=== PATIENT | male | born 1930 | race Caucasian/White ===

== ENCOUNTER 2016-07-30 18:55 | Emergency (ER) | payer OTHER ==
--- NOTE | 2016-07-30 21:14 | ED NURSING NOTES ---
Clinical Report - Nurses [facility] [address] [place] [address] 07/30/2016 18:56 Patient: PLACIDO DONOHUE TRIAGE Acuity: LEVEL 3. Chief Complaint: VOMITING and (dizziness). Alert. No acute distress. SEPSIS SCREEN: Sepsis Screen. Negative (no infection suspected/documented). --19:19 Jody Johnston R.N. 19:09 07/30/16. BP: 204/101. HR: 108. RR: 20. O2 saturation: 97% on room air. Temp: 97.7 F (oral). Pain level now: 0/10. --19:19 Jody Johnston R.N. Weight: 68 kg stated. Height/Length: 66 inches Per Patient. BMI: 24.2. --19:12 Jody Johnston R.N. Medications Metformin 500mg day . PredniSONE Oral 3 mg, daily. --19:12 Jody Johnston R.N. Blood Pressure Pill. --19:12 Jody Johnston R.N. Medication/allergy information source: the patient. --19:19 Jody Johnston R.N. Allergies No Known Drug Allergy. --19:12 Jody Johnston R.N. History Arrived by private vehicle. Historian: patient. Accompanied by spouse. Primary physician (katharina at [facility]). This started today. 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 SOCIAL HX: Former smoker, end date 1976. No alcohol use or drug use. NUTRITIONAL RISK ASSESSMENT: The nutritional risk assessment revealed no deficiencies. LEARNING NEEDS ASSESSMENT: The learning needs assessment revealed no barriers. FALL RISK ASSESSMENT: Fall risk assessment completed. Risk factors identified include patient age greater than 65 years and impairment of mobility. Fall interventions initiated. Side rails up x2. Patient visible from nurses' station and identified as a fall risk. Call light in reach of patient. FUNCTIONAL ASSESSMENT: Functional assessment performed: independent with the activities of daily living. SKIN INTEGRITY ASSESSMENT: Skin integrity risk assessment completed. No skin integrity risk identified. --19:19 Jody Johnston R.N. PROBLEMS: Abnormal EKG. Fall. Contusion. Skin Avulsion. Hyperlipidemia. Gastroesophageal Reflux. Heart Disease. Diabetes Mellitus. Hypertension. Cabg x3 vessels . --19:11 Jody Johnston R.N. ADDITIONAL SURGERIES: Coronary Artery Bypass Graft. --19:11 Jody Johnston R.N. Hernia Repair. --19:13 Jody Johnston R.N. Assessment GENERAL / NEURO / PSYCH: Alert. Oriented X 4. Appears in no acute distress. Patient appears calm and cooperative. RESPIRATORY: Respirations not labored. CVS: Capillary refill less than 2 seconds. GI / : Abdomen soft and nontender. SKIN: Mucous membranes are pink. Skin is warm and dry. --19:19 Jody Johnston R.N. Interventions ID band on patient. To treatment room. --19:19 Jody Johnston R.N. PHYSICAL ASSESSMENT 19:21 07/30/16. To room via wheelchair. GENERAL / NEURO / PSYCH: Alert. Oriented X 4. Appears in no acute distress. HEENT: Mucous membranes are pink. RESPIRATORY: Respirations not labored. CVS: Capillary refill less than 2 seconds. GI / : The patient has had nausea. Emesis noted. Has vomited twice. Abdomen soft and nontender. SKIN: Skin is warm and dry. --19:21 Jody Johnston R.N. NURSING PROGRESS NOTES 19:07/30/16. EKG time: (1915). EKG was performed by a tech and shown to the ED physician. --19: Jody Johnston R.N. 19:07/30/16. Oxygen administered by nasal cannula at 2 liters. air sampling and monitoring, pulse oximeter and NIBP monitor placed on patient; monitor alarms on. Patient gowned. Two patient identifiers checked. Call light placed in reach. Side rails up x 1. Bed placed in lowest position. Brakes of bed on. Patient ready for evaluation- chart flagged and ED physician notified. --19: Jody Johnston R.N. 19:20 07/30/2016 Site #1 started via IV in the left wrist with an 20g angiocath, with aseptic technique and good blood return; one attempt. Blood drawn: rainbow set. Labeled in the presence of the patient and sent to the lab. Saline lock flushed with 10 mL saline. --19:20 Jody Johnston R.N. 19:20 07/30/16. Glucose: 148. --19:20 Jody Johnston R.N. 19:24 07/30/16. Cardiac rhythm: sinus tachycardia. --19:24 Jody Johnston R.N. 19:24 07/30/16. BP: 175/84. HR: 111. RR: 19. O2 saturation: 95% on room air. Pain level now: 0/10. --19:24 Jody Johnston R.N. 19:23 07/30/2016 Zofran ODT (Ondansetron) PO 4 mg given. Allergies verified and confirmed 5 rights. --19:28 Jody Johnston R.N. 19:44 07/30/2016 Meclizine PO Tablets 25 mg given. Allergies verified, confirmed 5 rights and sedative warning given to the patient. --19:44 Cyndi Carbajal 19:54 07/30/2016 Started bag #1 1000 mL IV Fluids IV NS (Saline); at 999 mL/hr over 1 hour(s) via site #1 via IV pump. Allergies verified and confirmed 5 rights. IV patency established. IV site checked: no pain, redness, or swelling. IV flushed thoroughly pre- and post-medication administration. --19:54 Jody Johnston R.N. 20:22 07/30/16. BP: 171/69. HR: 79. RR: 18. O2 saturation: 93% on room air. --20:43 Jody Johnston R.N. 21:01 07/30/2016 IV Fluids IV NS Discontinued: bag #1 infused. Total amount infused: 700 mL. IV patency established. IV site checked: no pain, redness, or swelling. IV flushed thoroughly. (approx 300 mL of saline spilled on the floor when IV tubing became undone). --21:11 Jody Johnston R.N. 21:25 07/30/2016 Site #1 removed upon discharge. Catheter intact. Pressure dressing applied. --21:30 Cyndi Carbajal 21:25 07/30/2016 IV Saline Lock Drip IV Discontinued. Total amount infused: 0 mL. --21:30 Cyndi Carbajal. DISPOSITION / DISCHARGE 21:18 07/30/16. BP: 163/82. HR: 78. RR: 16. O2 saturation: 96%. Temp: 97.5 F. Pain level now 0/10. --21:18 Cyndi Carbajal 21:23 07/30/16. No learning barriers present. Discharge instructions provided and reviewed with the patient and spouse. Reviewed warnings. Reviewed medication(s). Treatments reviewed. Reviewed referrals. Activity restrictions reviewed. Patient and spouse verbalized understanding. Written instructions provided in [place]. The patient was discharged home and accompanied by family. He left the Emergency Department ambulatory and via private vehicle. Family member driving. --21:23 Shadia Person R.N. Locked/Released at 07/31/2016 5:48 by Shadia Person R.N.
--- NOTE | 2016-07-30 21:14 | ED ORDER SUMMARY ---
..... Patient: PLACIDO DONOHUE OrderSheet [facility] VisitID: [id number] [place] [address] 86y, M Registration Date/Time: 07/30/2016 ORDER SHEET Weight: 68.0 kg (stated) Allergies: No Known Drug Allergy GENERAL ORDERS: Geography Faculty Member (Continuous) (19:25 07/30/2016 MWinterer R.N. per protocol) (19:25 MWinterer R.N.) POC Glucose (19:07/30/2016 MWinterer R.N. per protocol) (19:25 MWinterer R.N.) EKG - ER Stat (19:07/30/2016 MWinterer R.N. per protocol) (19:25 MWinterer R.N.) Pulse oximeter (19:07/30/2016 MWinterer R.N. per protocol) (19:25 MWinterer R.N.) MEDICATION ORDERS: Zofran ODT PO 4 mg (NOW) (19:27 07/30/2016 MWinterer R.N. per protocol) (19:28 MWinterer R.N.) Meclizine PO 25 mg (NOW) (19:34 07/30/2016 Cathy Melendez) (Ack 19:42 ASchmuck) (19:44 ASchmuck) IV FLUIDS: IV Saline Lock (19:25 07/30/2016 MWinterer R.N. per protocol) (19:25 MWinterer R.N.) IV NS : initial bolus none -, then 1000 mL/hr for X1 (NOW) (19:49 07/30/2016 Cathy Melendez) (19:54 MWinterer R.N.) ORDER SHEET NOTES: [Electronically signed by Tiago Post Dr. (22:46 07/30/2016)] [Electronically signed by Shadia Person R.N. (05:48 07/31/2016)] [Electronically locked/signed by Shadia Person R.N. (05:48 07/31/2016)]
--- NOTE | 2016-07-30 21:14 | ED CLINICAL REPORT ---
Clinical Report - Physicians/Mid Levels [facility] [address] [place] [address] 07/30/2016 18:56 Patient: PLACIDO DONOHUE Time Seen: 19:07; initial patient contact. Arrived- By private vehicle. Historian- patient. HISTORY OF PRESENT ILLNESS Chief Complaint: VOMITING. This started today and is still present. It was gradual in onset. The patient has had nausea and vomiting. No diarrhea or abdominal pain. The illness is described as moderate. Similar symptoms previously: None. Recent medical care: Not recently seen/assessed. REVIEW OF SYSTEMS No fever, difficulty with urination or headache. He has had dizziness and tinnitus. All systems otherwise negative, except as recorded above. PAST HISTORY Abnormal EKG. Fall. Contusion. Skin Avulsion. Hyperlipidemia. Gastroesophageal Reflux. Heart Disease. Diabetes Mellitus. Hypertension. Cabg x3 vessels . ADDITIONAL SURGERIES: Coronary Artery Bypass Graft. Hernia Repair. SOCIAL HISTORY Former smoker. No alcohol use or drug use. ADDITIONAL NOTES The nursing notes have been reviewed. PHYSICAL EXAM Vital Signs: 07/30/2016 19:09 BP: 204/101. HR: 108. RR: 20. O2 saturation: 97%. Temp: 97.7 F. Pain level now: 0/10. Have been reviewed. Hypertensive. Tachycardic. Respiratory rate normal. Temperature normal. Oxygen saturation normal. Appearance: Alert. Oriented X3. No acute distress. Eyes: Pupils equal, round and reactive to light. Eyes normal inspection. ENT: Dry mucous membranes present. Neck: Normal inspection. Neck supple. CVS: Normal heart rate and rhythm. Heart sounds normal. Respiratory: No respiratory distress. Breath sounds normal. Skin: Skin warm and dry. Normal skin color. Extremities: No lower extremity edema. Neuro: Oriented X 3. No motor deficit. (Positive Jose Hallpike on the L). LABS, X-RAYS, AND EKG EKG: EKG time: (1915). No acute process. Rate: 111. Regular wide-complex tachycardia (ventricular rate 111). Sinus tachycardia. Normal P waves. Normal ANGELICA. Wide QRS- intraventricular conduction delay. Normal axis. Normal ST and T waves. Prolonged QTc (473). EKG unchanged when compared with prior EKG. The study has been interpreted contemporaneously. The study has been independently viewed by me. The EKG appears to be a good tracing. Interpretation time: 1915. PROGRESS AND PROCEDURES Disposition: Discharged home in good and improved condition. Condition: good. CLINICAL IMPRESSION Benign positional vertigo, left ear. INSTRUCTIONS (No driving until this is cleared up.). Your Current Medications: CONTINUE TAKING THE FOLLOWING MEDICATIONS: Blood Pressure Pill*. Metformin 500mg day *. PredniSONE Oral : 3 mg daily. Prescription Medications: Meclizine 25 mg: take 1 tablet orally every 6 hours as needed for dizziness. Dispense thirty (30). No refill. Zofran ODT 4 mg: take 1 orally every 6 hours as needed for nausea and vomiting. Dispense ten (10). No refill. Substitution is permissible. Diazepam 5 mg: take 1 orally at bedtime as needed sleep. Dispense fifteen (15). No refill. Follow-up: Blood pressure screening was not performed during this visit because the patient has an active diagnosis of hypertension. The patient should follow up with a primary care provider for blood pressure management. (Electronically signed by Tiago Post Dr. 07/30/2016 22:46)
--- NOTE | 2016-07-30 21:14 | ED NURSING NOTES ---
Clinical Report - Nurses [facility] [address] [place] [address] 07/30/2016 18:56 Patient: PLACIDO DONOHUE TRIAGE Acuity: LEVEL 3. Chief Complaint: VOMITING and (dizziness). Alert. No acute distress. SEPSIS SCREEN: Sepsis Screen. Negative (no infection suspected/documented). --19:19 Jody Johnston R.N. 19:09 07/30/16. BP: 204/101. HR: 108. RR: 20. O2 saturation: 97% on room air. Temp: 97.7 F (oral). Pain level now: 0/10. --19:19 Jody Johnston R.N. Weight: 68 kg stated. Height/Length: 66 inches Per Patient. BMI: 24.2. --19:12 Jody Johnston R.N. Medications Metformin 500mg day . PredniSONE Oral 3 mg, daily. --19:12 Jody Johnston R.N. Blood Pressure Pill. --19:12 Jody Johnston R.N. Medication/allergy information source: the patient. --19:19 Jody Johnston R.N. Allergies No Known Drug Allergy. --19:12 Jody Johnston R.N. History Arrived by private vehicle. Historian: patient. Accompanied by spouse. Primary physician (katharina at [facility]). This started today. 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 SOCIAL HX: Former smoker, end date 1976. No alcohol use or drug use. NUTRITIONAL RISK ASSESSMENT: The nutritional risk assessment revealed no deficiencies. LEARNING NEEDS ASSESSMENT: The learning needs assessment revealed no barriers. FALL RISK ASSESSMENT: Fall risk assessment completed. Risk factors identified include patient age greater than 65 years and impairment of mobility. Fall interventions initiated. Side rails up x2. Patient visible from nurses' station and identified as a fall risk. Call light in reach of patient. FUNCTIONAL ASSESSMENT: Functional assessment performed: independent with the activities of daily living. SKIN INTEGRITY ASSESSMENT: Skin integrity risk assessment completed. No skin integrity risk identified. --19:19 Jody Johnston R.N. PROBLEMS: Abnormal EKG. Fall. Contusion. Skin Avulsion. Hyperlipidemia. Gastroesophageal Reflux. Heart Disease. Diabetes Mellitus. Hypertension. Cabg x3 vessels . --19:11 Jody Johnston R.N. ADDITIONAL SURGERIES: Coronary Artery Bypass Graft. --19:11 Jody Johnston R.N. Hernia Repair. --19:13 Jody Johnston R.N. Assessment GENERAL / NEURO / PSYCH: Alert. Oriented X 4. Appears in no acute distress. Patient appears calm and cooperative. RESPIRATORY: Respirations not labored. CVS: Capillary refill less than 2 seconds. GI / : Abdomen soft and nontender. SKIN: Mucous membranes are pink. Skin is warm and dry. --19:19 Jody Johnston R.N. Interventions ID band on patient. To treatment room. --19:19 Jody Johnston R.N. PHYSICAL ASSESSMENT 19:21 07/30/16. To room via wheelchair. GENERAL / NEURO / PSYCH: Alert. Oriented X 4. Appears in no acute distress. HEENT: Mucous membranes are pink. RESPIRATORY: Respirations not labored. CVS: Capillary refill less than 2 seconds. GI / : The patient has had nausea. Emesis noted. Has vomited twice. Abdomen soft and nontender. SKIN: Skin is warm and dry. --19:21 Jody Johnston R.N. NURSING PROGRESS NOTES 19:07/30/16. EKG time: (1915). EKG was performed by a tech and shown to the ED physician. --19: Jody Johnston R.N. 19:07/30/16. Oxygen administered by nasal cannula at 2 liters. front desk monitor, pulse oximeter and NIBP monitor placed on patient; monitor alarms on. Patient gowned. Two patient identifiers checked. Call light placed in reach. Side rails up x 1. Bed placed in lowest position. Brakes of bed on. Patient ready for evaluation- chart flagged and ED physician notified. --19: Jody Johnston R.N. 19:20 07/30/2016 Site #1 started via IV in the left wrist with an 20g angiocath, with aseptic technique and good blood return; one attempt. Blood drawn: rainbow set. Labeled in the presence of the patient and sent to the lab. Saline lock flushed with 10 mL saline. --19:20 Jody Johnston R.N. 19:20 07/30/16. Glucose: 148. --19:20 Jody Johnston R.N. 19:24 07/30/16. Cardiac rhythm: sinus tachycardia. --19:24 Jody Johnston R.N. 19:24 07/30/16. BP: 175/84. HR: 111. RR: 19. O2 saturation: 95% on room air. Pain level now: 0/10. --19:24 Jody Johnston R.N. 19:23 07/30/2016 Zofran ODT (Ondansetron) PO 4 mg given. Allergies verified and confirmed 5 rights. --19:28 Jody Johnston R.N. 19:44 07/30/2016 Meclizine PO Tablets 25 mg given. Allergies verified, confirmed 5 rights and sedative warning given to the patient. --19:44 Cyndi Carbajal 19:54 07/30/2016 Started bag #1 1000 mL IV Fluids IV NS (Saline); at 999 mL/hr over 1 hour(s) via site #1 via IV pump. Allergies verified and confirmed 5 rights. IV patency established. IV site checked: no pain, redness, or swelling. IV flushed thoroughly pre- and post-medication administration. --19:54 Jody Johnston R.N. 20:22 07/30/16. BP: 171/69. HR: 79. RR: 18. O2 saturation: 93% on room air. --20:43 Jody Johnston R.N. 21:01 07/30/2016 IV Fluids IV NS Discontinued: bag #1 infused. Total amount infused: 700 mL. IV patency established. IV site checked: no pain, redness, or swelling. IV flushed thoroughly. (approx 300 mL of saline spilled on the floor when IV tubing became undone). --21:11 Jody Johnston R.N. 21:25 07/30/2016 Site #1 removed upon discharge. Catheter intact. Pressure dressing applied. --21:30 Cyndi Carbajal 21:25 07/30/2016 IV Saline Lock Drip IV Discontinued. Total amount infused: 0 mL. --21:30 Cyndi Carbajal. DISPOSITION / DISCHARGE 21:18 07/30/16. BP: 163/82. HR: 78. RR: 16. O2 saturation: 96%. Temp: 97.5 F. Pain level now 0/10. --21:18 Cyndi Carbajal 21:23 07/30/16. No learning barriers present. Discharge instructions provided and reviewed with the patient and spouse. Reviewed warnings. Reviewed medication(s). Treatments reviewed. Reviewed referrals. Activity restrictions reviewed. Patient and spouse verbalized understanding. Written instructions provided in [place]. The patient was discharged home and accompanied by family. He left the Emergency Department ambulatory and via private vehicle. Family member driving. --21:23 Shadia Person R.N. Locked/Released at 07/31/2016 5:48 by Shadia Person R.N.
--- NOTE | 2016-07-30 21:14 | ED ORDER SUMMARY ---
..... Patient: PLACIDO DONOHUE OrderSheet [facility] VisitID: [id number] [place] [address] 86y, M Registration Date/Time: 07/30/2016 ORDER SHEET Weight: 68.0 kg (stated) Allergies: No Known Drug Allergy GENERAL ORDERS: Trimming Cutter Machine (Continuous) (19:25 07/30/2016 MWinterer R.N. per protocol) (19:25 MWinterer R.N.) POC Glucose (19:07/30/2016 MWinterer R.N. per protocol) (19:25 MWinterer R.N.) EKG - ER Stat (19:07/30/2016 MWinterer R.N. per protocol) (19:25 MWinterer R.N.) Pulse oximeter (19:07/30/2016 MWinterer R.N. per protocol) (19:25 MWinterer R.N.) MEDICATION ORDERS: Zofran ODT PO 4 mg (NOW) (19:27 07/30/2016 MWinterer R.N. per protocol) (19:28 MWinterer R.N.) Meclizine PO 25 mg (NOW) (19:34 07/30/2016 Cathy Melendez) (Ack 19:42 ASchmuck) (19:44 ASchmuck) IV FLUIDS: IV Saline Lock (19:25 07/30/2016 MWinterer R.N. per protocol) (19:25 MWinterer R.N.) IV NS : initial bolus none -, then 1000 mL/hr for X1 (NOW) (19:49 07/30/2016 Cathy Melendez) (19:54 MWinterer R.N.) ORDER SHEET NOTES: [Electronically signed by Tiago Post Dr. (22:46 07/30/2016)] [Electronically signed by Shadia Person R.N. (05:48 07/31/2016)] [Electronically locked/signed by Shadia Person R.N. (05:48 07/31/2016)]
--- NOTE | 2016-07-31 05:49 | ED DISCHARGE INSTRUCTIONS ---
Patient: PLACIDO DONOHUE General Instructions [facility] VisitID: [id number] [place] [address] 86y, M Registration Date/Time: 07/30/2016 Benign positional vertigo, left ear. INSTRUCTIONS (No driving until this is cleared up.). Your Current Medications: CONTINUE TAKING THE FOLLOWING MEDICATIONS: Blood Pressure Pill*. Metformin 500mg day *. PredniSONE Oral : 3 mg daily. Prescription Medications: Meclizine 25 mg: take 1 tablet orally every 6 hours as needed for dizziness. Dispense thirty (30). No refill. Zofran ODT 4 mg: take 1 orally every 6 hours as needed for nausea and vomiting. Dispense ten (10). No refill. Substitution is permissible. Diazepam 5 mg: take 1 orally at bedtime as needed sleep. Dispense fifteen (15). No refill. Follow-up: Blood pressure screening was not performed during this visit because the patient has an active diagnosis of hypertension. The patient should follow up with a primary care provider for blood pressure management. ADDITIONAL INFORMATION Benign Positional Vertigo The inner ear is located behind the middle ear. It is a part of the balance center of the body. It contains small calcium particles within fluid filled canals (semi-circular canals). These particles can move out of position as a result of aging, head trauma or disease of the inner ear. Once that happens, movement of the head into certain positions may cause the particles to stimulate the inner ear and create the feeling of vertigo. Vertigo is a false feeling of motion (as if you or the room is spinning). A vertigo attack may cause sudden nausea, vomiting and heavy sweating. Severe vertigo causes a loss of balance and may result in falling. During an attack of vertigo, head movement and body position changes will worsen symptoms. An episode of vertigo may last seconds, minutes or hours. Once you are over the first episode of vertigo, it may never return. Sometimes symptoms recur off and on over several weeks or longer. Home Care: If symptoms are severe, rest quietly in bed. Change positions slowly. There is usually one position that will feel best, such as lying on one side or lying on your back with your head slightly raised on pillows. Do not drive or work with dangerous machinery for one week after symptoms disappear, in case of a sudden return of symptoms. Take medicine as prescribed to relieve your symptoms. Unless another medicine was prescribed for nausea, vomiting and vertigo, you may use [id number] motion sickness pills, such as meclizine (Bonine, Bonamine, Antivert) or dimenhydrinate (Dramamine). Follow Up with your doctor or as directed by our staff. Report any persistent ringing in the ear or hearing loss to your doctor. [NOTE: If you had a CT or MRI scan, it will be reviewed by a specialist. You will be notified of any new findings that may affect your care.] Get Prompt Medical Attention if any of the following occur: Worsening of vertigo not controlled by the medicine prescribed Repeated vomiting not controlled by the medicine prescribed Increased weakness or fainting Severe headache or unusual drowsiness or confusion Weakness of an arm or leg or one side of the face Difficulty with speech or vision Seizure Meclizine Hydrochloride Oral tablet What is this medicine? MECLIZINE (RADHA ryan) is an antihistamine. It is used to prevent nausea, vomiting, or dizziness caused by motion sickness. It is also used to prevent and treat vertigo (extreme dizziness or a feeling that you or your surroundings are tilting or spinning around). How should I use this medicine? Take this medicine by mouth with a glass of water. Follow the directions on the prescription label. If you are using this medicine to prevent motion sickness, take the dose at least 1 hour before travel. If it upsets your stomach, take it with food or milk. Take your doses at regular intervals. Do not take your medicine more often than directed. Talk to your sausage maker regarding the use of this medicine in children. Special care may be needed. What side effects may I notice from receiving this medicine? Side effects that you should report to your doctor or health daycare provider as soon as possible: fainting spells fast or irregular heartbeat Side effects that usually do not require medical attention (report to your doctor or health daycare provider if they continue or are bothersome): constipation difficulty passing urine difficulty sleeping headache stomach upset What may interact with this medicine? barbiturate medicines for inducing sleep or treating seizures digoxin medicines for anxiety or sleeping problems, like alprazolam, diazepam or temazepam medicines for hay fever and other allergies medicines for mental depression medicines for movement abnormalities as in Parkinson's disease, or for stomach problems medicines for pain medicines that relax muscles What if I miss a dose? If you miss a dose, take it as soon as you can. If it is almost time for your next dose, take only that dose. Do not take double or extra doses. Where should I keep my medicine? Keep out of the reach of children. Store at room temperature between 15 and 30 degrees C (59 and 86 degrees F). Keep container tightly closed. Throw away any unused medicine after the expiration date. What should I tell my health care provider before I take this medicine? They need to know if you have any of these conditions: asthma glaucoma prostate trouble stomach problems urinary problems an unusual or allergic reaction to meclizine, other medicines, foods, dyes, or preservatives or trying to get breast-feeding What should I watch for while using this medicine? If you are taking this medicine on a regular schedule, visit your doctor or health daycare provider for regular checks on your progress. You may get dizzy, drowsy or have blurred vision. Do not drive, use machinery, or do anything that needs mental alertness until you know how this medicine affects you. Do not stand or sit up quickly, especially if you are an older patient. This reduces the risk of dizzy or fainting spells. Alcohol can increase possible dizziness. Avoid alcoholic drinks. Your mouth may get dry. Chewing sugarless gum or sucking hard candy, and drinking plenty of water may help. Contact your doctor if the problem does not go away or is severe. This medicine may cause dry eyes and blurred vision. If you wear contact lenses you may feel some discomfort. Lubricating drops may help. See your eye doctor if the problem does not go away or is severe. Ondansetron Oral disintegrating tablet What is this medicine? ONDANSETRON (on SUSANNA se paulina) is used to treat nausea and vomiting caused by chemotherapy. It is also used to prevent or treat nausea and vomiting after surgery. How should I use this medicine? These tablets are made to dissolve in the mouth. Do not try to push the tablet through the foil backing. With dry hands, peel away the foil backing and gently remove the tablet. Place the tablet in the mouth and allow it to dissolve, then swallow. While you may take these tablets with water, it is not necessary to do so. Talk to your sausage maker regarding the use of this medicine in children. Special care may be needed. What side effects may I notice from receiving this medicine? Side effects that you should report to your doctor or health daycare provider as soon as possible: allergic reactions like skin rash, itching or hives, swelling of the face, lips, or tongue breathing problems dizziness fast or irregular heartbeat feeling faint or lightheaded, falls fever and chills swelling of the hands and feet tightness in the chest Side effects that usually do not require medical attention (report to your doctor or health daycare provider if they continue or are bothersome): constipation or diarrhea headache What may interact with this medicine? Do not take this medicine with any of the following medications: -apomorphine -cisapride -dofetilide -dronedarone -pimozide -thioridazine -ziprasidone This medicine may also interact with the following medications: -carbamazepine -phenytoin -rifampicin -tramadol -other medicines that prolong the QT interval (cause an abnormal heart rhythm) What if I miss a dose? If you miss a dose, take it as soon as you can. If it is almost time for your next dose, take only that dose. Do not take double or extra doses. Where should I keep my medicine? Keep out of the reach of children. Store between 2 and 30 degrees C (36 and 86 degrees F). Throw away any unused medicine after the expiration date. What should I tell my health care provider before I take this medicine? They need to know if you have any of these conditions: heart disease history of irregular heartbeat liver disease low levels of magnesium or potassium in the blood an unusual or allergic reaction to ondansetron, granisetron, other medicines, foods, dyes, or preservatives or trying to get breast-feeding What should I watch for while using this medicine? Check with your doctor or health daycare provider as soon as you can if you have any sign of an allergic reaction. Diazepam Oral tablet What is this medicine? DIAZEPAM (dye AZ e yokasta) is a benzodiazepine. It is used to treat anxiety and nervousness. It also can help treat alcohol withdrawal, relax muscles, and treat certain types of seizures. How should I use this medicine? Take this medicine by mouth with a glass of water. Follow the directions on the prescription label. If this medicine upsets your stomach, take it with food or milk. Take your doses at regular intervals. Do not take your medicine more often than directed. If you have been taking this medicine regularly for some time, do not suddenly stop taking it. You must gradually reduce the dose or you may get severe side effects. Ask your doctor or health daycare provider for advice. Even after you stop taking this medicine it can still affect your body for several days. Talk to your sausage maker regarding the use of this medicine in children. Special care may be needed. What side effects may I notice from receiving this medicine? Side effects that you should report to your doctor or health daycare provider as soon as possible: allergic reactions like skin rash, itching or hives, swelling of the face, lips, or tongue angry, confused, depressed, other mood changes breathing problems feeling faint or lightheaded, falls muscle cramps problems with balance, talking, walking restlessness tremors trouble passing urine or change in the amount of urine unusually weak or tired Side effects that usually do not require medical attention (report to your doctor or health daycare provider if they continue or are bothersome): difficulty sleeping, nightmares dizziness, drowsiness, clumsiness, or unsteadiness, a hangover effect headache nausea, vomiting What may interact with this medicine? cimetidine grapefruit juice herbal or dietary supplements like kava kava, melatonin, Alvin's Wort, or valerian medicines for anxiety or sleeping problems, like alprazolam, lorazepam, or triazolam medicines for depression, mental problems or psychiatric disturbances medicines for HIV infection or AIDS prescription pain medicines rifampin, rifapentine, or rifabutin some medicines for seizures like carbamazepine, phenobarbital, phenytoin, or primidone What if I miss a dose? If you miss a dose, take it as soon as you can. If it is almost time for your next dose, take only that dose. Do not take double or extra doses. Where should I keep my medicine? Keep out of the reach of children. This medicine can be abused. Keep your medicine in a safe place to protect it from theft. Do not share this medicine with anyone. Selling or giving away this medicine is dangerous and against the law. Store at room temperature between 15 and 30 degrees C (59 and 86 degrees F). Protect from light. Keep container tightly closed. Throw away any unused medicine after the expiration date. What should I tell my health care provider before I take this medicine? They need to know if you have any of these conditions an alcohol or drug abuse problem bipolar disorder, depression, psychosis or other mental health condition glaucoma kidney or liver disease lung or breathing disease myasthenia gravis Parkinson's disease seizures or a history of seizures suicidal thoughts an unusual or allergic reaction to diazepam, other benzodiazepines, foods, dyes, or preservatives or trying to get breast-feeding What should I watch for while using this medicine? Visit your doctor or health daycare provider for regular checks on your progress. Your body can become dependent on this medicine. Ask your doctor or health daycare provider if you still need to take it. You may get drowsy or dizzy. Do not drive, use machinery, or do anything that needs mental alertness until you know how this medicine affects you. To reduce the risk of dizzy and fainting spells, do not stand or sit up quickly, especially if you are an older patient. Alcohol may increase dizziness and drowsiness. Avoid alcoholic drinks. Do not treat yourself for coughs, colds or allergies without asking your doctor or health daycare provider for advice. Some ingredients can increase possible side effects. You have been given the following additional information: Benign Positional Vertigo Meclizine Hydrochloride Oral tablet Ondansetron Oral disintegrating tablet Diazepam Oral tablet (Electronically signed by Tiago Post Dr. 07/30/2016 22:46)
--- NOTE | 2016-07-31 05:49 | ED DISCHARGE INSTRUCTIONS ---
Patient: PLACIDO DONOHUE General Instructions [facility] VisitID: [id number] [place] [address] 86y, M Registration Date/Time: 07/30/2016 Benign positional vertigo, left ear. INSTRUCTIONS (No driving until this is cleared up.). Your Current Medications: CONTINUE TAKING THE FOLLOWING MEDICATIONS: Blood Pressure Pill*. Metformin 500mg day *. PredniSONE Oral : 3 mg daily. Prescription Medications: Meclizine 25 mg: take 1 tablet orally every 6 hours as needed for dizziness. Dispense thirty (30). No refill. Zofran ODT 4 mg: take 1 orally every 6 hours as needed for nausea and vomiting. Dispense ten (10). No refill. Substitution is permissible. Diazepam 5 mg: take 1 orally at bedtime as needed sleep. Dispense fifteen (15). No refill. Follow-up: Blood pressure screening was not performed during this visit because the patient has an active diagnosis of hypertension. The patient should follow up with a primary care provider for blood pressure management. ADDITIONAL INFORMATION Benign Positional Vertigo The inner ear is located behind the middle ear. It is a part of the balance center of the body. It contains small calcium particles within fluid filled canals (semi-circular canals). These particles can move out of position as a result of aging, head trauma or disease of the inner ear. Once that happens, movement of the head into certain positions may cause the particles to stimulate the inner ear and create the feeling of vertigo. Vertigo is a false feeling of motion (as if you or the room is spinning). A vertigo attack may cause sudden nausea, vomiting and heavy sweating. Severe vertigo causes a loss of balance and may result in falling. During an attack of vertigo, head movement and body position changes will worsen symptoms. An episode of vertigo may last seconds, minutes or hours. Once you are over the first episode of vertigo, it may never return. Sometimes symptoms recur off and on over several weeks or longer. Home Care: If symptoms are severe, rest quietly in bed. Change positions slowly. There is usually one position that will feel best, such as lying on one side or lying on your back with your head slightly raised on pillows. Do not drive or work with dangerous machinery for one week after symptoms disappear, in case of a sudden return of symptoms. Take medicine as prescribed to relieve your symptoms. Unless another medicine was prescribed for nausea, vomiting and vertigo, you may use [id number] motion sickness pills, such as meclizine (Bonine, Bonamine, Antivert) or dimenhydrinate (Dramamine). Follow Up with your doctor or as directed by our staff. Report any persistent ringing in the ear or hearing loss to your doctor. [NOTE: If you had a CT or MRI scan, it will be reviewed by a specialist. You will be notified of any new findings that may affect your care.] Get Prompt Medical Attention if any of the following occur: Worsening of vertigo not controlled by the medicine prescribed Repeated vomiting not controlled by the medicine prescribed Increased weakness or fainting Severe headache or unusual drowsiness or confusion Weakness of an arm or leg or one side of the face Difficulty with speech or vision Seizure Meclizine Hydrochloride Oral tablet What is this medicine? MECLIZINE (RADHA ryan) is an antihistamine. It is used to prevent nausea, vomiting, or dizziness caused by motion sickness. It is also used to prevent and treat vertigo (extreme dizziness or a feeling that you or your surroundings are tilting or spinning around). How should I use this medicine? Take this medicine by mouth with a glass of water. Follow the directions on the prescription label. If you are using this medicine to prevent motion sickness, take the dose at least 1 hour before travel. If it upsets your stomach, take it with food or milk. Take your doses at regular intervals. Do not take your medicine more often than directed. Talk to your senior technical manager regarding the use of this medicine in children. Special care may be needed. What side effects may I notice from receiving this medicine? Side effects that you should report to your doctor or health critical care clinical nurse specialist as soon as possible: fainting spells fast or irregular heartbeat Side effects that usually do not require medical attention (report to your doctor or health critical care clinical nurse specialist if they continue or are bothersome): constipation difficulty passing urine difficulty sleeping headache stomach upset What may interact with this medicine? barbiturate medicines for inducing sleep or treating seizures digoxin medicines for anxiety or sleeping problems, like alprazolam, diazepam or temazepam medicines for hay fever and other allergies medicines for mental depression medicines for movement abnormalities as in Parkinson's disease, or for stomach problems medicines for pain medicines that relax muscles What if I miss a dose? If you miss a dose, take it as soon as you can. If it is almost time for your next dose, take only that dose. Do not take double or extra doses. Where should I keep my medicine? Keep out of the reach of children. Store at room temperature between 15 and 30 degrees C (59 and 86 degrees F). Keep container tightly closed. Throw away any unused medicine after the expiration date. What should I tell my health care provider before I take this medicine? They need to know if you have any of these conditions: asthma glaucoma prostate trouble stomach problems urinary problems an unusual or allergic reaction to meclizine, other medicines, foods, dyes, or preservatives or trying to get breast-feeding What should I watch for while using this medicine? If you are taking this medicine on a regular schedule, visit your doctor or health critical care clinical nurse specialist for regular checks on your progress. You may get dizzy, drowsy or have blurred vision. Do not drive, use machinery, or do anything that needs mental alertness until you know how this medicine affects you. Do not stand or sit up quickly, especially if you are an older patient. This reduces the risk of dizzy or fainting spells. Alcohol can increase possible dizziness. Avoid alcoholic drinks. Your mouth may get dry. Chewing sugarless gum or sucking hard candy, and drinking plenty of water may help. Contact your doctor if the problem does not go away or is severe. This medicine may cause dry eyes and blurred vision. If you wear contact lenses you may feel some discomfort. Lubricating drops may help. See your eye doctor if the problem does not go away or is severe. Ondansetron Oral disintegrating tablet What is this medicine? ONDANSETRON (on SUSANNA se paulina) is used to treat nausea and vomiting caused by chemotherapy. It is also used to prevent or treat nausea and vomiting after surgery. How should I use this medicine? These tablets are made to dissolve in the mouth. Do not try to push the tablet through the foil backing. With dry hands, peel away the foil backing and gently remove the tablet. Place the tablet in the mouth and allow it to dissolve, then swallow. While you may take these tablets with water, it is not necessary to do so. Talk to your senior technical manager regarding the use of this medicine in children. Special care may be needed. What side effects may I notice from receiving this medicine? Side effects that you should report to your doctor or health critical care clinical nurse specialist as soon as possible: allergic reactions like skin rash, itching or hives, swelling of the face, lips, or tongue breathing problems dizziness fast or irregular heartbeat feeling faint or lightheaded, falls fever and chills swelling of the hands and feet tightness in the chest Side effects that usually do not require medical attention (report to your doctor or health critical care clinical nurse specialist if they continue or are bothersome): constipation or diarrhea headache What may interact with this medicine? Do not take this medicine with any of the following medications: -apomorphine -cisapride -dofetilide -dronedarone -pimozide -thioridazine -ziprasidone This medicine may also interact with the following medications: -carbamazepine -phenytoin -rifampicin -tramadol -other medicines that prolong the QT interval (cause an abnormal heart rhythm) What if I miss a dose? If you miss a dose, take it as soon as you can. If it is almost time for your next dose, take only that dose. Do not take double or extra doses. Where should I keep my medicine? Keep out of the reach of children. Store between 2 and 30 degrees C (36 and 86 degrees F). Throw away any unused medicine after the expiration date. What should I tell my health care provider before I take this medicine? They need to know if you have any of these conditions: heart disease history of irregular heartbeat liver disease low levels of magnesium or potassium in the blood an unusual or allergic reaction to ondansetron, granisetron, other medicines, foods, dyes, or preservatives or trying to get breast-feeding What should I watch for while using this medicine? Check with your doctor or health critical care clinical nurse specialist as soon as you can if you have any sign of an allergic reaction. Diazepam Oral tablet What is this medicine? DIAZEPAM (dye AZ e yokasta) is a benzodiazepine. It is used to treat anxiety and nervousness. It also can help treat alcohol withdrawal, relax muscles, and treat certain types of seizures. How should I use this medicine? Take this medicine by mouth with a glass of water. Follow the directions on the prescription label. If this medicine upsets your stomach, take it with food or milk. Take your doses at regular intervals. Do not take your medicine more often than directed. If you have been taking this medicine regularly for some time, do not suddenly stop taking it. You must gradually reduce the dose or you may get severe side effects. Ask your doctor or health critical care clinical nurse specialist for advice. Even after you stop taking this medicine it can still affect your body for several days. Talk to your senior technical manager regarding the use of this medicine in children. Special care may be needed. What side effects may I notice from receiving this medicine? Side effects that you should report to your doctor or health critical care clinical nurse specialist as soon as possible: allergic reactions like skin rash, itching or hives, swelling of the face, lips, or tongue angry, confused, depressed, other mood changes breathing problems feeling faint or lightheaded, falls muscle cramps problems with balance, talking, walking restlessness tremors trouble passing urine or change in the amount of urine unusually weak or tired Side effects that usually do not require medical attention (report to your doctor or health critical care clinical nurse specialist if they continue or are bothersome): difficulty sleeping, nightmares dizziness, drowsiness, clumsiness, or unsteadiness, a hangover effect headache nausea, vomiting What may interact with this medicine? cimetidine grapefruit juice herbal or dietary supplements like kava kava, melatonin, [place]'s Wort, or valerian medicines for anxiety or sleeping problems, like alprazolam, lorazepam, or triazolam medicines for depression, mental problems or psychiatric disturbances medicines for HIV infection or AIDS prescription pain medicines rifampin, rifapentine, or rifabutin some medicines for seizures like carbamazepine, phenobarbital, phenytoin, or primidone What if I miss a dose? If you miss a dose, take it as soon as you can. If it is almost time for your next dose, take only that dose. Do not take double or extra doses. Where should I keep my medicine? Keep out of the reach of children. This medicine can be abused. Keep your medicine in a safe place to protect it from theft. Do not share this medicine with anyone. Selling or giving away this medicine is dangerous and against the law. Store at room temperature between 15 and 30 degrees C (59 and 86 degrees F). Protect from light. Keep container tightly closed. Throw away any unused medicine after the expiration date. What should I tell my health care provider before I take this medicine? They need to know if you have any of these conditions an alcohol or drug abuse problem bipolar disorder, depression, psychosis or other mental health condition glaucoma kidney or liver disease lung or breathing disease myasthenia gravis Parkinson's disease seizures or a history of seizures suicidal thoughts an unusual or allergic reaction to diazepam, other benzodiazepines, foods, dyes, or preservatives or trying to get breast-feeding What should I watch for while using this medicine? Visit your doctor or health critical care clinical nurse specialist for regular checks on your progress. Your body can become dependent on this medicine. Ask your doctor or health critical care clinical nurse specialist if you still need to take it. You may get drowsy or dizzy. Do not drive, use machinery, or do anything that needs mental alertness until you know how this medicine affects you. To reduce the risk of dizzy and fainting spells, do not stand or sit up quickly, especially if you are an older patient. Alcohol may increase dizziness and drowsiness. Avoid alcoholic drinks. Do not treat yourself for coughs, colds or allergies without asking your doctor or health critical care clinical nurse specialist for advice. Some ingredients can increase possible side effects. You have been given the following additional information: Benign Positional Vertigo Meclizine Hydrochloride Oral tablet Ondansetron Oral disintegrating tablet Diazepam Oral tablet (Electronically signed by Tiago Post Dr. 07/30/2016 22:46)
--- NOTE | 2016-07-31 05:49 | ED MED RECONCILIATION SUMMARY ---
Patient: PLACIDO DONOHUE Medication Reconciliation Report [facility] VisitID: [id number] [address] [place] [address] 86y, M Registration Date/Time: 07/30/2016 Weight: 68.0 kg Height/Length: 66 in. BMI: 24.2 ALLERGIES: No Known Drug Allergy The patient's Home Medications are listed below: CONTINUE TAKING THE FOLLOWING MEDICATIONS: Blood Pressure Pill Metformin 500mg day PredniSONE Oral 3 mg, daily The source(s) of the original Home Medication information: patient The following Medications were given to the patient in the Emergency Department: Zofran ODT [PO] PO 4 mg, administered: 07/30/2016 7:23:00 PM Meclizine [PO] PO 25 mg, administered: 07/30/2016 7:44:00 PM IV NS IV Fluids bolus 0, then 999 mL/hr, administered: 07/30/2016 7:54:00 PM The following Medications were prescribed to the patient: Meclizine 25 mg: take 1 tablet orally every 6 hours as needed for dizziness. Dispense thirty (30). No refill. -- Tiago Post Dr. Zofran ODT 4 mg: take 1 orally every 6 hours as needed for nausea and vomiting. Dispense ten (10). No refill. Substitution is permissible. -- Tiago Post Dr. Diazepam 5 mg: take 1 orally at bedtime as needed sleep. Dispense fifteen (15). No refill. -- Tiago Post Dr.
--- NOTE | 2016-07-31 05:49 | ED MED RECONCILIATION SUMMARY ---
Patient: PLACIDO DONOHUE Medication Reconciliation Report [facility] VisitID: [id number] [address] [place] [address] 86y, M Registration Date/Time: 07/30/2016 Weight: 68.0 kg Height/Length: 66 in. BMI: 24.2 ALLERGIES: No Known Drug Allergy The patient's Home Medications are listed below: CONTINUE TAKING THE FOLLOWING MEDICATIONS: Blood Pressure Pill Metformin 500mg day PredniSONE Oral 3 mg, daily The source(s) of the original Home Medication information: patient The following Medications were given to the patient in the Emergency Department: Zofran ODT [PO] PO 4 mg, administered: 07/30/2016 7:23:00 PM Meclizine [PO] PO 25 mg, administered: 07/30/2016 7:44:00 PM IV NS IV Fluids bolus 0, then 999 mL/hr, administered: 07/30/2016 7:54:00 PM The following Medications were prescribed to the patient: Meclizine 25 mg: take 1 tablet orally every 6 hours as needed for dizziness. Dispense thirty (30). No refill. -- Tiago Post Dr. Zofran ODT 4 mg: take 1 orally every 6 hours as needed for nausea and vomiting. Dispense ten (10). No refill. Substitution is permissible. -- Tiago Post Dr. Diazepam 5 mg: take 1 orally at bedtime as needed sleep. Dispense fifteen (15). No refill. -- Tiago Post Dr.
--- NOTE | 2016-07-31 05:49 | ED MAR SUMMARY ---
..... Medication Administration Record [facility] [address] [place] [address] Patient: PLACIDO DONOHUE Visit ID: [id number] 86y, M Weight: 68.0 kg Height/Length: 66 in BMI: 24.2 ALLERGIES: No Known Drug Allergy Given 19:23 07/30/2016 Jody Johnston, RLenchoNLencho Medication Administered: ZOFRAN ODT [PO] (ONDANSETRON), Dose: 4 mg PO. Medication Ordered: Zofran ODT PO 4 mg (NOW). Given 19:44 07/30/2016 Cyndi Carbajal, Medication Administered: MECLIZINE [PO], Dose: 25 mg Tablets PO. Medication Ordered: Meclizine PO 25 mg (NOW). Start 19:54 07/30/2016 Jody Johnston, RLenchoN., Stop 21:01 07/30/2016 Jody Johnston, RLenchoN. Medication Administered: IV NS (SALINE), Dose: IV Fluids over 1 hour(s), Rate: 999 mL/hr, Dispensed: 1000 mL bag, Site: #1 left wrist. Medication Ordered: IV NS : initial bolus none -, then 1000 mL/hr for X1 (NOW).
--- NOTE | 2016-07-31 05:49 | ED MAR SUMMARY ---
..... Medication Administration Record [facility] [address] [place] [address] Patient: PLACIDO DONOHUE Visit ID: [id number] 86y, M Weight: 68.0 kg Height/Length: 66 in BMI: 24.2 ALLERGIES: No Known Drug Allergy Given 19:23 07/30/2016 Jody Johnston, RLenchoNLencho Medication Administered: ZOFRAN ODT [PO] (ONDANSETRON), Dose: 4 mg PO. Medication Ordered: Zofran ODT PO 4 mg (NOW). Given 19:44 07/30/2016 Cyndi Carbajal, Medication Administered: MECLIZINE [PO], Dose: 25 mg Tablets PO. Medication Ordered: Meclizine PO 25 mg (NOW). Start 19:54 07/30/2016 Jody Johnston, RLenchoN., Stop 21:01 07/30/2016 Jody Johnston, RLenchoN. Medication Administered: IV NS (SALINE), Dose: IV Fluids over 1 hour(s), Rate: 999 mL/hr, Dispensed: 1000 mL bag, Site: #1 left wrist. Medication Ordered: IV NS : initial bolus none -, then 1000 mL/hr for X1 (NOW).
== END 2016-07-30 21:23 | disposition home or self-care (01) ==
LOC: ED SRH 18:55
DX: H81.12 Benign paroxysmal vertigo, left ear (principal); E11.9 Type 2 diabetes mellitus without complications; I10 Essential (primary) hypertension; E78.5 Hyperlipidemia, unspecified; Z95.1 Presence of aortocoronary bypass graft; Z87.891 Personal history of nicotine dependence; Z79.84 Long term (current) use of oral hypoglycemic drugs; Z79.899 Other long term (current) drug therapy
CPT/HCPCS: 90098